=== PATIENT | male | born 1950 | race Caucasian/White ===

== ENCOUNTER → 2025-02-19 07:43 | Outpatient (CLI) | payer MEDICARE, SELFPAY ==
--- NOTE | 2025-02-19 17:57 | DI.NM.S_ITS ---
DATE OF SERVICE: 02/19/2025 NUCLEAR CARDIOLOGY MYOCARDIAL PERFUSION STUDY PROCEDURE: Pharmacologic vasodilator stress and rest myocardial perfusion imaging with gating to assess ejection fraction and regional wall motion. ORDERING PROVIDER: Yoandy Astudillo MD. INDICATIONS: The patient is a 74-year-old male with progressive exertional dyspnea and frequent PVCs. CARDIAC STRESS: Per protocol, 0.4 mg of regadenoson was infused with a normal hemodynamic response. With this, he had minimal dyspnea but no chest discomfort. His resting ECG shows sinus rhythm with normal ST segments and there are no significant ST-segment shifts with stress although he had occasional monomorphic PVCs, at times in a trigeminal pattern and rarely in pairs and triplets, but no sustained ectopy. His PVCs improved in recovery. Per protocol, 27.3 millicuries of technetium-99m Myoview was injected and he was imaged 15 minutes later using a gated SPECT acquisition protocol. Earlier in the day while at rest he had been injected with 12.0 millicuries of technetium-99m Myoview and was imaged 15 minutes later, again using a gated SPECT acquisition protocol. FINDINGS: 1. Raw Data: There is fair myocardial tracer uptake with some evidence for diaphragmatic attenuation. The lung/heart ratio is normal at 0.27 with a normal TID ratio of 1.12. 2. Quantitated gated SPECT: Post-stress ejection fraction is 60% without any focal wall motion abnormality and specifically the distal inferior wall appears to have normal contractility. The resting ejection fraction is 59% with a similar contraction pattern but moderately increased left ventricular volumes with an end-diastolic volume of 155 mL. 3. Myocardial perfusion imaging: Post-stress supine images show a fairly small, mild perfusion defect in the mid to distal inferior wall in a pattern consistent with diaphragmatic attenuation but the defect remains present on the prone imaging, concerning for a true perfusion defect. There are no other perfusion defects. The resting images show an identical perfusion pattern without any improvement in the mid to distal inferior wall defect. IMPRESSION: 1. Probable abnormal myocardial perfusion study. 2. Small, mild, fixed mid to distal inferior wall perfusion defect in a pattern consistent with diaphragmatic attenuation although persisting on the prone images, concerning for true perfusion defect. 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 There is no evidence for any myocardial ischemia. 3. Mild to moderate left ventricular enlargement with normal systolic function and no focal wall motion abnormality. 4. No angina or ECG evidence of ischemia with pharmacologic vasodilator stress. He had occasional PVCs with stress, occasionally in a trigeminal pattern and in pairs and triplets, but no other complex ventricular ectopy and this resolved in recovery. Kenrick Michelle - ELDA/valentin/PADMINI doc#: [id number]/job#: [id number] dd: 02/19/2025 17:01:00 dt: 02/19/2025 17:39:00 DICTATING MD/COPIES TO: Terry Marmolejo MD; Yoandy Astudillo MD COPIES MNE: HEIDE;
== END ==
LOC: NUCM 07:44
PROVIDERS: Family Provider Family Medicine; PCP Student in an Organized Health Care Education/Training Program; Referring Provider Student in an Organized Health Care Education/Training Program; Visit Provider Student in an Organized Health Care Education/Training Program
DX: R06.09 Other forms of dyspnea (principal)
CPT/HCPCS: 78452; 93017; A9502; J2785